=== PATIENT | female | born 1970 | race Caucasian/White ===

== ENCOUNTER 2017-09-01 14:29 | Observation (INO) | payer BC ==
[2017-09-01] MEDS ORDERED: TUSSIONEX PENNKINETIC SUSP PO PRN (15:24)
[2017-09-01 15:42] VITALS: BMI 27.6
[2017-09-01 15:54] LABS: BILIRUBIN,URINE NEGATIVE (NEGATIVE); BLOOD/HEMOGLOBIN,URINE 1+ (NEGATIVE); GLUCOSE, URINE NEGATIVE (NEGATIVE); KETONES,URINE NEGATIVE (NEGATIVE); LEUKOCYTE ESTERASE ,URINE NEGATIVE (NEGATIVE); NITRITES,URINE NEGATIVE (NEGATIVE); PH,URINE 6.5 (5.0 - 8.0); PROTEIN,URINE NEGATIVE (NEGATIVE); UROBILINOGEN,URINE NORMAL (NORMAL)
[2017-09-01 15:55] LABS: BASOPHILS % (AUTO) 0.5 % (0.2-1.0); EOSINOPHILS % (AUTO) 0.8 % (0.9-2.9); HEMATOCRIT 38.3 % (36.0-47.0); HEMOGLOBIN 13.3 g/dL (12.0-16.0); LYMPHOCYTES # (AUTO) 0.9 X10^3/uL (1.3-2.9); LYMPHOCYTES % (AUTO) 14.4 % (21.0-51.0); MEAN CORPUSCULAR HEMOGLOBIN 28.3 pg (27.0-34.0); MEAN CORPUSCULAR HGB CONC 34.7 g/dL (33.0-35.0); MEAN CORPUSCULAR VOLUME 81.6 fL (80.0-100.0); MONOCYTES # (AUTO) 0.6 x10^3/uL (0.3-0.8); MONOCYTES % (AUTO) 9.5 % (0.0-13.0); NEUTROPHILS # (AUTO) 4.6 x10^3/uL (2.2-4.8); NEUTROPHILS % (AUTO) 74.8 % (42.0-75.0); PLATELET COUNT 187 X10^3/uL (150.0-450.0); RED CELL DISTRIBUTION WIDTH 12.8 % (11.6-16.5); WHITE BLOOD COUNT 6.1 X10^3/uL (3.6-10.0)
[2017-09-01] MEDS ORDERED: SALINE 3% 15 ML NEB TX ONE (16:00)
[2017-09-01] MEDS ORDERED: NS 1/2 1000 ML IV 1,000 ML IV ONE ×2 (16:03→22:55)
[2017-09-01 16:07] LABS: ALANINE AMINOTRANSFERASE 15 Units/L (12-78); ALKALINE PHOSPHATASE 103 Units/L (46-116); ASPARTATE AMINO TRANSFERASE 13 Units/L (15-37); BLOOD UREA NITROGEN 6 mg/dL (7-18); CALCIUM 8.4 mg/dL (8.5-10.1); CARBON DIOXIDE 30.8 mmol/L (21-32); CHLORIDE 105 mmol/L (98-107); CREATININE 0.78 mg/dL (0.55-1.02); SODIUM 142 mmol/L (136-145); eGFR BLACK RACES > 60 (>60); eGFR NON BLACK RACES > 60 (>60)
--- NOTE | 2017-09-01 16:08 | RAD ---
Chest, PA and lateral Indication: Pneumonia, cough Comparison: 01/20/2015 Findings: Cardiac silhouette is unremarkable. The lungs are clear without focal infiltrate or pleural effusion. Impression: No acute chest process. Reported By:
[2017-09-01 16:16] LABS: CKMB % 1.8 % (<4); CREATINE KINASE 56 Units/L (26-192); CREATINE KINASE MB < 1.0 ng/mL (0-4.0); TROPONIN I < 0.02 ng/mL (0-1.5)
[2017-09-01 16:20] LABS: APPEARANCE,URINE CLEAR (CLEAR); BACTERIA,URINE NEGATIVE /HPF (NEGATIVE); COLOR,URINE YELLOW (YELLOW); RBC,URINE 0-2 /HPF (NONE SEEN); SQUAMOUS EPITHELIAL CELL,UR NEGATIVE /HPF (NEGATIVE)
[2017-09-01] MEDS: NS 1/2 1000 ML IV 1,000 ML IV SCH (16:20)
[2017-09-01] MEDS: LEVAQUIN PREMIX IV 750 MG 750 MG/150 ML BAG IV SCH (16:20)
[2017-09-01] MEDS: ROBITUSSIN DM PO SCH ×2 (16:20→20:34)
[2017-09-01] MEDS: NORCO 5/325 MG TAB PO PRN (16:45)
[2017-09-01] MEDS: DUONEB 0.5 MG/3 MG NEB SCH ×3 (16:52→21:52)
[2017-09-01] MEDS ORDERED: POTASSIUM CHL 60 MEQ/NS 0.45% 500 ML IV PRN (18:31)
[2017-09-01] MEDS ORDERED: POTASSIUM CHL 40 MEQ/NS 0.45% 500 ML IV PRN (18:31)
[2017-09-01] MEDS ORDERED: POTASSIUM CHLORIDE LIQ 20 MEQ UDC PO PRN (18:31)
[2017-09-01] MEDS ORDERED: K-LYTE EFFERVESCENT PO PRN (18:31)
[2017-09-01] MEDS ORDERED: K-RIDER 10 MEQ/NS 100 ML 10 MEQ/100 ML BAG IV PRN (18:31)
[2017-09-01] MEDS ORDERED: PHENERGAN INJ 25 MG IV PRN (18:44)
[2017-09-01] MEDS ORDERED: AMBIEN PO PRN (18:44)
[2017-09-01] MEDS ORDERED: ZOFRAN INJ 4 MG VIAL IVP PRN (18:44)
[2017-09-01] MEDS: ZOSYN VIAL 4.5 GM 4.5 GM in NS 100 ML IV + SPIKE MINIBAG* 100 ML IV SCH (23:13)
[2017-09-02] MEDS: DUONEB 0.5 MG/3 MG NEB SCH ×5 (01:25→16:26)
[2017-09-02] MEDS ORDERED: NS 250 ML IV 250 ML IV ONE (05:00)
[2017-09-02 05:31] LABS: BASOPHILS % (AUTO) 0.6 % (0.2-1.0); EOSINOPHILS % (AUTO) 0.5 % (0.9-2.9); HEMATOCRIT 35.9 % (36.0-47.0); HEMOGLOBIN 12.5 g/dL (12.0-16.0); LYMPHOCYTES # (AUTO) 0.7 X10^3/uL (1.3-2.9); LYMPHOCYTES % (AUTO) 14.8 % (21.0-51.0); MEAN CORPUSCULAR HEMOGLOBIN 28.3 pg (27.0-34.0); MEAN CORPUSCULAR HGB CONC 34.8 g/dL (33.0-35.0); MEAN CORPUSCULAR VOLUME 81.3 fL (80.0-100.0); MEAN PLATELET VOLUME 10.3 fL (7.4-11.0); MONOCYTES # (AUTO) 0.6 x10^3/uL (0.3-0.8); MONOCYTES % (AUTO) 11.5 % (0.0-13.0); NEUTROPHILS # (AUTO) 3.6 x10^3/uL (2.2-4.8); NEUTROPHILS % (AUTO) 72.6 % (42.0-75.0); PLATELET COUNT 170 X10^3/uL (150.0-450.0); RED BLOOD COUNT 4.42 X10^6/uL (3.5-5.4); RED CELL DISTRIBUTION WIDTH 13.1 % (11.6-16.5)
[2017-09-02] MEDS: NORCO 5/325 MG TAB PO PRN ×2 (05:43→11:55)
[2017-09-02] MEDS: ZOSYN VIAL 4.5 GM 4.5 GM in NS 100 ML IV + SPIKE MINIBAG* 100 ML IV SCH ×3 (05:43→21:42)
[2017-09-02 05:46] LABS: ALANINE AMINOTRANSFERASE 14 Units/L (12-78); ALBUMIN 3.5 g/dL (3.4-5.0); ALKALINE PHOSPHATASE 90 Units/L (46-116); ASPARTATE AMINO TRANSFERASE 11 Units/L (15-37); BLOOD UREA NITROGEN 8 mg/dL (7-18); CALCIUM 7.9 mg/dL (8.5-10.1); CARBON DIOXIDE 28.2 mmol/L (21-32); CHLORIDE 105 mmol/L (98-107); CREATININE 0.86 mg/dL (0.55-1.02); SODIUM 143 mmol/L (136-145); TOTAL PROTEIN 7.3 g/dL (6.4-8.2); eGFR BLACK RACES > 60 (>60); eGFR NON BLACK RACES > 60 (>60)
[2017-09-02] MEDS: LEVAQUIN PREMIX IV 750 MG 750 MG/150 ML BAG IV SCH (09:17)
[2017-09-02] MEDS: ROBITUSSIN DM PO SCH ×4 (09:18→21:43)
[2017-09-02] MEDS ORDERED: TORADOL 30 MG VIAL IVP PRN (12:55)
[2017-09-02] MEDS: NS 1/2 1000 ML IV 1,000 ML IV SCH ×3 (14:27→21:43)
[2017-09-02] MEDS ORDERED: NS 1/2 1000 ML IV 1,000 ML IV ONE (16:24)
--- NOTE | 2017-09-02 17:19 | PCM.PROG ---
Progress Note - Progress Note for Day of Date: 09/02/17 - Subjective Subjective: PT CONTINUES TO CO FALL AND DIZZINESS, SLIGHT IMPROVEMENT IN PERSISTENT COUGHING - Past Medical Family Social History Past Med/Fam/Surg Hx: No changes since H&P Allergies: Allergies No Known Drug Allergies Allergy (Verified 09/01/17 15:26) - Review of Systems ROS: No change since H&P - Vital Signs and I&O's Vital Signs: Temperature 98.5 F Pulse Rate [Left Radial] 93 Pulse Rate 98 Respiratory Rate 18 Blood Pressure [Left Arm] 105/61 Blood Pressure 111/64 O2 Sat by Pulse Oximetry 96 Intake and Output: Intake & Output 08/31/17 09/01/17 09/02/17 09/03/17 11:59 11:59 11:59 11:59 Intake Total 2080 840 Balance 2080 840 - Physical Exam Oriented: Normal Eyes: Normal Ear: Normal Nose: Normal Throat: Dry Respiratory: Rhonchi Cardiovascular: Tachycardia : Normal Auscultation: Bowel Sounds: Normal Palpation: Normal Tenderness: Normal Skin: Normal Musculoskeletal: Back:Lumbar Psychiatric: Anxiety Speech Pattern: Clear, Appropriate - Laboratory and Diagnostics Result Diagrams: 09/02/17 05:02 09/02/17 05:02 Labs: Laboratory WBC 5.0 X10^3/uL (3.6-10.0) 09/02/17 05:02 RBC 4.42 X10^6/uL (3.5-5.4) 09/02/17 05:02 Hgb 12.5 g/dL (12.0-16.0) 09/02/17 05:02 Hct 35.9 % (36.0-47.0) L 09/02/17 05:02 MCV 81.3 fL (80.0-100.0) 09/02/17 05:02 MCH 28.3 pg (27.0-34.0) 09/02/17 05:02 MCHC 34.8 g/dL (33.0-35.0) 09/02/17 05:02 RDW 13.1 % (11.6-16.5) 09/02/17 05:02 Plt Count 170 X10^3/uL (150.0-450.0) 09/02/17 05:02 MPV 10.3 fL (7.4-11.0) 09/02/17 05:02 Neut % (Auto) 72.6 % (42.0-75.0) 09/02/17 05:02 Lymph % (Auto) 14.8 % (21.0-51.0) L 09/02/17 05:02 [place] % (Auto) 11.5 % (0.0-13.0) 09/02/17 05:02 Eos % (Auto) 0.5 % (0.9-2.9) L 09/02/17 05:02 Baso % (Auto) 0.6 % (0.2-1.0) 09/02/17 05:02 Neut # (Auto) 3.6 x10^3/uL (2.2-4.8) 09/02/17 05:02 Lymph # (Auto) 0.7 X10^3/uL (1.3-2.9) L 09/02/17 05:02 [place] # (Auto) 0.6 x10^3/uL (0.3-0.8) 09/02/17 05:02 Eos # (Auto) 0.0 x10^3/uL (0.0-0.2) 09/02/17 05:02 Baso # (Auto) 0.0 X10^3/uL (0.0-0.1) 09/02/17 05:02 Absolute Nucleated RBC 0.1 /100WBC 09/02/17 05:02 Sodium 143 mmol/L (136-145) 09/02/17 05:02 Corrected Sodium TNP 09/02/17 05:02 Potassium 3.8 mmol/L (3.5-5.1) 09/02/17 05:02 Chloride 105 mmol/L (98-107) 09/02/17 05:02 Carbon Dioxide 28.2 mmol/L (21-32) 09/02/17 05:02 BUN 8 mg/dL (7-18) 09/02/17 05:02 Creatinine 0.86 mg/dL (0.55-1.02) 09/02/17 05:02 Est GFR (MDRD) Af Amer > 60 (>60) 09/02/17 05:02 Est GFR (MDRD) Non-Af > 60 (>60) 09/02/17 05:02 Glucose 101 mg/dL (65-99) H 09/02/17 05:02 Calcium 7.9 mg/dL (8.5-10.1) L 09/02/17 05:02 Corrected Calcium TNP 09/02/17 05:02 Total Bilirubin 0.40 mg/dL (0.2-1.0) 09/02/17 05:02 AST 11 Units/L (15-37) L 09/02/17 05:02 ALT 14 Units/L (12-78) 09/02/17 05:02 Alkaline Phosphatase 90 Units/L (46-116) 09/02/17 05:02 Creatine Kinase 56 Units/L (26-192) 09/01/17 15:35 CK-MB (CK-2) < 1.0 ng/mL (0-4.0) 09/01/17 15:35 CK/CKMB % Calc 1.8 % (<4) 09/01/17 15:35 Troponin I < 0.02 ng/mL (0-1.5) 09/01/17 15:35 Total Protein 7.3 g/dL (6.4-8.2) 09/02/17 05:02 Albumin 3.5 g/dL (3.4-5.0) 09/02/17 05:02 Globulin 3.8 g/dL (2.5-4.5) 09/02/17 05:02 Albumin/Globulin Ratio 0.9 Ratio (1.1-2.1) L 09/02/17 05:02 Specimen Type Clean catch urine 09/01/17 15:42 Urine Color Yellow (YELLOW) 09/01/17 15:42 Urine Appearance Clear (CLEAR) 09/01/17 15:42 Urine pH 6.5 (5.0 - 8.0) 09/01/17 15:42 Ur Specific [place] 1.005 (1.000-1.030) 09/01/17 15:42 Urine Protein Negative (NEGATIVE) 09/01/17 15:42 Urine Glucose (UA) Negative (NEGATIVE) 09/01/17 15:42 Urine Ketones Negative (NEGATIVE) 09/01/17 15:42 Urine Occult Blood 1+ (NEGATIVE) 09/01/17 15:42 Urine Nitrite Negative (NEGATIVE) 09/01/17 15:42 Urine Bilirubin Negative (NEGATIVE) 09/01/17 15:42 Urine Urobilinogen Normal (NORMAL) 09/01/17 15:42 Ur Leukocyte Esterase Negative (NEGATIVE) 09/01/17 15:42 Urine RBC 0-2 /HPF (NONE SEEN) 09/01/17 15:42 Urine WBC 0-2 /HPF (NONE SEEN) 09/01/17 15:42 Ur Squamous Epith Cells Negative /HPF (NEGATIVE) 09/01/17 15:42 Urine Bacteria Negative /HPF (NEGATIVE) 09/01/17 15:42 Ur Culture Indicated? No/not indicated 09/01/17 15:42 - Plan (1) Acute bronchitis Status: Acute Plan: CONTINUE. PNEUMONIA PATHWAY, ADMISSION LABS. BLOOD AND SPUTUM CULTURES. IV ATBX. RESP THERAPY, IV STEROIDS,CT HEAD. CE AND EKG ON ADMISSION, BP CONTROL (2) Dizziness Status: Acute (3) Headache Status: Acute (4) Anxiety disorder Status: Acute (5) Hypokalemia Status: Acute
--- NOTE | 2017-09-02 17:23 | DR.H&P ---
H&P - History & Physical for Day of: H&P Date: 09/01/17 - Chief Complaint Chief Complaint: FEVER, CCC, WEAKNESS, FALL AND DIZZINESS - Allergies Allergies/Adverse Reactions: Allergies Allergy/AdvReac Type Severity Reaction Status Date / Time No Known Drug Allergies Allergy Verified 09/01/17 15:26 - History of Present Illness History of Present Illness: 36 WF DIRECT ADMIT FROM DR FORMAN OFFICE WITH CO CCC AND FEVER. PT WAS TREATED ONE WEEK AGO WITH IM ROCEPHIN AND DECADRON. AND PO CEFDINIR WITHOUT IMPROVEMENT. PT STATES SHE HAS BEEN VERY WEAK IN BED WITH FALL AND DIZZINESS AND FEBRILE. PT HAS PMH OF CARDIAC ARRHYTHMIA, NOT CURRENTLY TAKING BYSTOLIC DUE TO SYMPTOMATIC BRADYCARDIA. PT ADMITTED FOR TREATEMENT OF BRONCHITIS, R/O PNEUMONIA - Past Medical History Past Medical History: Angina, Hypertension - Past Surgical History Surgical History: , Cholecystectomy, Hysterectomy, Other - Family History Family Medical History: [place], Hypertension - Social History Does patient currently use any type of tobacco product: No Have you used tobacco products in the last 12 months: No Type of Tobacco Use: None Does any household member use tobacco: No Alcohol Use: None Drug Use: None - Medications Home Medications: Nebivolol HCl [Bystolic] 1 tab PO DAILY 09/01/17 [History Confirmed 09/01/17] - Review of Systems Constitutional: Fever, Chills, Weakness, Malaise Eyes: No Symptoms Reported ENT: Throat Pain Respiratory: Cough, Shortness of Breath, Pleuritic Pain, Wheezing Cardiovascular: Palpitations, Light Headedness Gastrointestinal: Nausea, Diarrhea Genitourinary: No Symptoms Reported Musculoskeletal: Back Pain, Neck Pain Skin: No Symptoms Reported Neurological: Weakness, Other (FALL AND DIZZINESS) - Physical Exam Vital Signs: Temperature 98.5 F Pulse Rate [Left Radial] 93 Pulse Rate 98 Respiratory Rate 18 Blood Pressure [Left Arm] 105/61 Blood Pressure 111/64 O2 Sat by Pulse Oximetry 96 Oriented: Normal Eyes: Discharge Ear: Normal Nose: Normal Throat: Dry Respiratory: Rhonchi Throughout Cardiovascular: Normal. negative: Edema : Normal Auscultation: Bowel Sounds: Normal Palpation: Normal Tenderness: Normal Skin: Decreased [place]urg[place] Musculoskeletal: Back:Lumbar Psychiatric: Anxiety Affect: Anxious Speech Pattern: Clear, Appropriate - Assessment/Plan (1) Acute bronchitis Status: Acute Plan: ADMIT. PNEUMONIA PATHWAY, ADMISSION LABS. BLOOD AND SPUTUM CULTURES. IV ATBX. RESP THERAPY. CE AND EKG ON ADMISSION (2) Fever Status: Acute (3) Headache Status: Acute (4) Dizziness Status: Acute (5) Hypokalemia Status: Acute
--- NOTE | 2017-09-02 17:30 | CT ---
HISTORY: Headache with dizziness Study: CT brain without contrast Comparison: None Technique: Multiple axial images of the brain were obtained from the skull base to the vertex without administra tion of IV contrast. Dose reduction techniques including Automated Exposure Control (AEC) and adjust ment of mA and kV were utilized. Findings: The brain parenchyma is within normal limits for patient's age. No evidence of acute hemorrhage, mid line shift, mass effect or abnormal extra-axial fluid collection. The ventricular system is symmetri c and nondilated. The soft tissues and osseous structures are unremarkable. There is bilateral sphen oid, ethmoid, and maxillary sinus mucosal thickening. Mastoid air cells are clear. IMPRESSION: 1.No acute intracranial abnormality. 2. Diffuse sphenoid, ethmoid, maxillary sinus mucosal thickening; correlate for sinusitis. Reported By:
[2017-09-02 17:57] LABS: CKMB % 2.4 % (<4); CREATINE KINASE 42 Units/L (26-192); CREATINE KINASE MB < 1.0 ng/mL (0-4.0); TROPONIN I < 0.02 ng/mL (0-1.5)
[2017-09-02] MEDS: SOLU-Medrol 125 MG VIAL IVP SCH ×2 (18:03→21:42)
[2017-09-02] MEDS: XOPENEX 1.25 MG/3 ML NEBULE NEB SCH (21:47)
[2017-09-03] MEDS: NORCO 5/325 MG TAB PO PRN (00:11)
[2017-09-03 05:40] LABS: BASOPHILS % (AUTO) 0.4 % (0.2-1.0); HEMATOCRIT 36.4 % (36.0-47.0); HEMOGLOBIN 12.7 g/dL (12.0-16.0); LYMPHOCYTES # (AUTO) 0.2 X10^3/uL (1.3-2.9); LYMPHOCYTES % (AUTO) 4.7 % (21.0-51.0); MEAN CORPUSCULAR HEMOGLOBIN 28.6 pg (27.0-34.0); MEAN CORPUSCULAR HGB CONC 34.8 g/dL (33.0-35.0); MEAN CORPUSCULAR VOLUME 82.3 fL (80.0-100.0); MEAN PLATELET VOLUME 10.5 fL (7.4-11.0); MONOCYTES # (AUTO) 0.1 x10^3/uL (0.3-0.8); MONOCYTES % (AUTO) 1.6 % (0.0-13.0); NEUTROPHILS # (AUTO) 4.7 x10^3/uL (2.2-4.8); NEUTROPHILS % (AUTO) 93.3 % (42.0-75.0); PLATELET COUNT 173 X10^3/uL (150.0-450.0); RED BLOOD COUNT 4.42 X10^6/uL (3.5-5.4); RED CELL DISTRIBUTION WIDTH 13.1 % (11.6-16.5)
[2017-09-03 05:48] LABS: ALANINE AMINOTRANSFERASE 9 Units/L (12-78); ALBUMIN 3.6 g/dL (3.4-5.0); ALKALINE PHOSPHATASE 89 Units/L (46-116); ASPARTATE AMINO TRANSFERASE 11 Units/L (15-37); BLOOD UREA NITROGEN 7 mg/dL (7-18); CALCIUM 8.3 mg/dL (8.5-10.1); CARBON DIOXIDE 25.6 mmol/L (21-32); CHLORIDE 107 mmol/L (98-107); COR NA(FOR HYPERGLY) 145 mmol/L (136-145); CREATININE 0.84 mg/dL (0.55-1.02); SODIUM 143 mmol/L (136-145); TOTAL PROTEIN 7.6 g/dL (6.4-8.2); eGFR BLACK RACES > 60 (>60); eGFR NON BLACK RACES > 60 (>60)
[2017-09-03] MEDS: SOLU-Medrol 125 MG VIAL IVP SCH ×2 (05:48→13:01)
[2017-09-03] MEDS: ZOSYN VIAL 4.5 GM 4.5 GM in NS 100 ML IV + SPIKE MINIBAG* 100 ML IV SCH ×2 (05:49→13:01)
[2017-09-03 06:00] LABS: PLATELET MORPHOLOGY COMMENT NORMAL (NORMAL)
[2017-09-03] MEDS: LEVAQUIN PREMIX IV 750 MG 750 MG/150 ML BAG IV SCH (08:46)
[2017-09-03] MEDS: ROBITUSSIN DM PO SCH (08:47)
[2017-09-03] MEDS: XOPENEX 1.25 MG/3 ML NEBULE NEB SCH (08:50)
[2017-09-03 13:00] VITALS: BP 115/58
== END 2017-09-03 13:46 | disposition home or self-care (01) ==
LOC: MED/SURG 14:29
PROVIDERS: ADMIT Internal Medicine; ATTEND Internal Medicine
DX: J20.9 Acute bronchitis, unspecified (principal); R50.9 Fever, unspecified; R51 Headache; R42 Dizziness and giddiness; E87.6 Hypokalemia; R53.1 Weakness; F41.9 Anxiety disorder, unspecified
CPT/HCPCS: 36415; 70450; 71046; 80053; 81001; 82550; 82553; 84132; 84484; 85025; 87040; 93005; 93010; 94640; 94760; A4222; G0378; J1885; J1956; J2405; J2543; J2930; J7620

== ENCOUNTER → 2017-10-01 | Outpatient (CLI) | payer BC ==
[2017-09-03 13:00] VITALS: BP 115/58
--- NOTE | 2017-10-01 11:42 | US ---
HISTORY: 46-year-old female with palpable mass in the left submandibular region. Patient states inte rmittently enlarged. Study: Focal ultrasound soft tissues left neck. Comparison: None. Technique: Multiple grayscale and color Doppler images within the region of interest were obtained in the left neck. Findings: Areas of interest demonstrate normal appearing lymph nodes measuring up to 7 and 8 mm respectively. R emaining soft tissues and musculature are unremarkable. No other mass lesion or fluid collection. IMPRESSION: Normal appearing lymph nodes with no other mass lesion or fluid collection within the left neck. Reported By:
== END ==
LOC: RAD 10:06
PROVIDERS: ATTEND Psychiatry & Neurology Neurology
DX: R22.0 Localized swelling, mass and lump, head (principal)
CPT/HCPCS: 76536

== ENCOUNTER 2024-08-17 16:38 | Observation (INO) ==
--- NOTE | 2024-08-17 17:42 | DR.H&P ---
H&P History & Physical for Day of: H&P Date: 08/17/24 Chief Complaint Chief Complaint: red, painful, swollen area to lower back and buttock History of Present Illness History of Present Illness: PT IS 53 WF, DIRECT ADMIT FROM DR LEMUS OFFICE WITH CO LOWER BACK PAIN X 1 WEEK, NOW HAS "KNOT OVER TAILBONE" THAT IS PAINFUL, RED AND FEVERED. PT HAD CO FEVER AND CHILLS ON AND OFF FOR ONE WEEK. PT TOOK A ROUND OF CIPRO FOR A UTI AND REPORTS ABSCESS FORMATION STARTED AFTER THAT WHICH WAS LAST WEEK. PT HAS PMH OF HTN. PT ADMITTED FOR EVALUATION AND TREATMENT OF ACUTE ILLNESS. Past Medical History Past Medical History: Anxiety and Hypertension Past Surgical History Surgical History: , Cholecystectomy, Hysterectomy and Other Family History Family Medical History: [place] and Hypertension Medications Home Medications: Home Medications Medication Instructions Recorded Confirmed Type nebivolol 2.5 mg tablet (Bystolic) 1 tab PO DAILY 09/01/17 02/07/18 History Allergies Allergies Allergy/AdvReac Type Severity Reaction Status Date / Time No Known Drug Allergies Allergy Unknown Unverified 09/01/17 15:26 Review of Systems Constitutional: Fever and Chills Eyes: No Symptoms Reported ENT: No Symptoms Reported Respiratory: No Symptoms Reported Cardiovascular: No Symptoms Reported Gastrointestinal: Nausea Genitourinary: Frequency Musculoskeletal: Back Pain Skin: Rash Neurological: No Symptoms Reported Oriented: Normal Eyes: Normal Ear: Normal Nose: Normal Throat: Normal Respiratory: Clear Throughout Cardiovascular: Normal : Normal Auscultation: Bowel Sounds: Normal Palpation: Normal Tenderness: Normal, Suprapubic and Mild Skin: Red, Tender (PILONIDAL) and Hot Musculoskeletal: Back:Lumbar Psychiatric: Normal Mood Description: Calm Affect: Normal Speech Pattern: Clear and Appropriate Assessment/Plan (1) Pilonidal cyst with abscess: Status: Acute Plan: ADMIT, IV ATBX PAIN CONTROL, SURGICAL CONSULT
[2024-08-17 19:16] VITALS: BMI 26.2
[2024-08-17 19:22] LABS: BASOPHILS % (AUTO) 0.5 % (0.2-1.0); EOSINOPHILS # (AUTO) 0.1 x10^3/uL (0.0-0.2); EOSINOPHILS % (AUTO) 0.9 % (0.9-2.9); HEMATOCRIT 35.4 % (36.0-47.0); HEMOGLOBIN 12.3 g/dL (12.0-16.0); LYMPHOCYTES # (AUTO) 1.4 X10^3/uL (1.3-2.9); LYMPHOCYTES % (AUTO) 16.8 % (21.0-51.0); MEAN CORPUSCULAR HEMOGLOBIN 29.1 pg (27.0-34.0); MEAN CORPUSCULAR HGB CONC 34.8 g/dL (33.0-35.0); MEAN CORPUSCULAR VOLUME 83.6 fL (80.0-100.0); MEAN PLATELET VOLUME 9.9 fL (7.4-11.0); MONOCYTES # (AUTO) 0.8 x10^3/uL (0.3-0.8); MONOCYTES % (AUTO) 9.7 % (0.0-13.0); NEUTROPHILS # (AUTO) 5.9 x10^3/uL (2.2-4.8); NEUTROPHILS % (AUTO) 72.1 % (42.0-75.0); PLATELET COUNT 235 X10^3/uL (150.0-450.0); RED BLOOD COUNT 4.23 X10^6/uL (3.5-5.4); RED CELL DISTRIBUTION WIDTH 13.1 % (11.6-16.5); WHITE BLOOD COUNT 8.2 X10^3/uL (3.6-10.0)
[2024-08-17 19:33] LABS: ALANINE AMINOTRANSFERASE 12 Units/L (12-78); ALBUMIN 3.7 g/dL (3.4-5.0); ALKALINE PHOSPHATASE 110 Units/L (46-116); ASPARTATE AMINO TRANSFERASE 11 Units/L (15-37); BLOOD UREA NITROGEN 9 mg/dL (7-18); CALCIUM 8.6 mg/dL (8.5-10.1); CARBON DIOXIDE 31.1 mmol/L (21-32); CHLORIDE 104 mmol/L (98-107); CREATININE 0.82 mg/dL (0.55-1.02); GLUCOSE 67 mg/dL (65-99); POTASSIUM 3.3 mmol/L (3.5-5.1); SODIUM 142 mmol/L (136-145); TOTAL PROTEIN 7.7 g/dL (6.4-8.2); eGFR NON BLACK RACES > 60 (>60)
[2024-08-17] MEDS: NS 1,000 ML IV 1,000 ML IV SCH (20:28)
[2024-08-17] MEDS ORDERED: CONSULT PHARMACY - POTASSIUM & MAGNESIUM XX SCH (21:00)
[2024-08-17] MEDS: CLEOCIN 300 MG IV PREMIX 300 MG/50 ML BAG IV SCH (21:19)
[2024-08-17] MEDS: NORCO 5/325 MG TAB PO PRN (21:20)
[2024-08-17] MEDS: K-DUR TAB 20 MEQ PO SCH (22:51)
[2024-08-18 05:36] LABS: BASOPHILS % (AUTO) 0.5 % (0.2-1.0); EOSINOPHILS # (AUTO) 0.1 x10^3/uL (0.0-0.2); EOSINOPHILS % (AUTO) 1.2 % (0.9-2.9); HEMATOCRIT 35.1 % (36.0-47.0); HEMOGLOBIN 12.2 g/dL (12.0-16.0); LYMPHOCYTES # (AUTO) 1.4 X10^3/uL (1.3-2.9); LYMPHOCYTES % (AUTO) 18.2 % (21.0-51.0); MEAN CORPUSCULAR HEMOGLOBIN 29.1 pg (27.0-34.0); MEAN CORPUSCULAR HGB CONC 34.8 g/dL (33.0-35.0); MEAN CORPUSCULAR VOLUME 83.7 fL (80.0-100.0); MEAN PLATELET VOLUME 9.7 fL (7.4-11.0); MONOCYTES # (AUTO) 0.7 x10^3/uL (0.3-0.8); MONOCYTES % (AUTO) 9.1 % (0.0-13.0); NEUTROPHILS # (AUTO) 5.3 x10^3/uL (2.2-4.8); PLATELET COUNT 223 X10^3/uL (150.0-450.0); RED CELL DISTRIBUTION WIDTH 12.7 % (11.6-16.5); WHITE BLOOD COUNT 7.4 X10^3/uL (3.6-10.0)
[2024-08-18 05:46] LABS: ALANINE AMINOTRANSFERASE 13 Units/L (12-78); ALBUMIN 3.4 g/dL (3.4-5.0); ALKALINE PHOSPHATASE 103 Units/L (46-116); ASPARTATE AMINO TRANSFERASE 12 Units/L (15-37); BLOOD UREA NITROGEN 10 mg/dL (7-18); CALCIUM 8.3 mg/dL (8.5-10.1); CARBON DIOXIDE 31.3 mmol/L (21-32); CHLORIDE 106 mmol/L (98-107); CREATININE 0.83 mg/dL (0.55-1.02); GLUCOSE 91 mg/dL (65-99); POTASSIUM 3.8 mmol/L (3.5-5.1); SODIUM 144 mmol/L (136-145); eGFR NON BLACK RACES > 60 (>60)
[2024-08-18] MEDS: PROTONIX TAB 40 MG PO SCH (10:53)
[2024-08-18] MEDS: PROzac PO SCH (10:53)
[2024-08-18] MEDS: FENTANYL VIAL INJ 100 mcg ONE (12:09)
[2024-08-18] MEDS: ZOFRAN INJ 4 MG VIAL ONE (12:09)
[2024-08-18] MEDS: PEPCID 20 MG VIAL ONE (12:09)
[2024-08-18] MEDS: DIPRIVAN VIAL 20 ML ONE (12:09)
[2024-08-18] MEDS: ZEMURON 100 MG VIAL ONE (12:09)
[2024-08-18] MEDS: BRIDION ONE (12:09)
[2024-08-18] MEDS: VERSED ONE (12:09)
[2024-08-18] MEDS: POLYMYXIN B SULFATE ONE (12:29)
[2024-08-18] MEDS: PEPCID 20 MG VIAL IVP PRN (12:40)
[2024-08-18] MEDS: ZOFRAN INJ 4 MG VIAL IVP PRN (12:40)
[2024-08-18] MEDS: XYLOCAINE 1 % (PLAIN) ONE (12:41)
[2024-08-18] MEDS: LR 1,000 ML IV 1,000 ML IV ONE (12:42)
[2024-08-18] MEDS: LR IV PRN (12:48)
[2024-08-18] MEDS ORDERED: KETAMINE HCL ONE (12:48)
[2024-08-18] MEDS: VERSED IVP PRN (12:50)
[2024-08-18] MEDS: KETAMINE HCL IV PRN (12:53)
[2024-08-18] MEDS ORDERED: XYLOCAINE 2 % (PLAIN) PRN (12:56)
[2024-08-18] MEDS: DIPRIVAN VIAL 90 ML IVP PRN (12:57)
[2024-08-18] MEDS ORDERED: DILAUDID INJ IVP PRN (13:10)
[2024-08-18] MEDS: TORADOL 15 MG VIAL IVP PRN (14:28)
--- NOTE | 2024-08-18 17:38 | CT ---
EXAM:LUMBAR SPINE W/O CONHISTORY:Pilonidal CYST, low back painCOMPARISON:CT abdomen and pelvis July 21, 2023TECHNIQUE:CT of the lumbar spine without contrastFINDINGS:Vertebral body heights are maintained. Facets align normally. There is scoliotic curvature of the lumbar spine versus positioning. The SI joints align normally. The visible lung bases are clear. Clips are noted from prior cholecystectomy. Limited visualization of the intrapelvic soft tissues demonstrates no acute process. No pelvic free fluid.In the subcutaneous fat overlying the sacrum in the midline there is collection present extending to the skin surface measuring approximately 2.4 X 1.8 X 1.8 cm. There is inflammatory stranding in the adjacent fat surrounding the collection. There is high density material within the collection with locules of gas. There is no evidence of intraperitoneal extension.IMPRESSION:Small collection in the subcutaneous fat of the sacrum overlying the midline containing gas and high density material. Inclusion cyst or pilonidal cyst would be top considerations. The high density material within the collection is of uncertain etiology and similar in appearance to contrast. No evidence of extension of this process into the peritoneum. There is mild surrounding stranding and induration in the adjacent fat suggesting concurrent mild cellulitis. The air within the collection could be due to communication with the skin surface, instrumentation or gas-forming organism.All CT scans at this facility use dose modulation, iterative reconstruction, and/or weight based dosing when appropriate to reduce radiation dose to as low as reasonably achievable.THIS IS AN ELECTRONICALLY VERIFIED FINAL REPORT08/18/2024 5:35 PM - Electronically signed by Jeffrey Leung MD
[2024-08-19 06:17] LABS: ALANINE AMINOTRANSFERASE 11 Units/L (12-78); ALBUMIN 2.9 g/dL (3.4-5.0); ALKALINE PHOSPHATASE 93 Units/L (46-116); ASPARTATE AMINO TRANSFERASE 11 Units/L (15-37); BLOOD UREA NITROGEN 9 mg/dL (7-18); CALCIUM 8.2 mg/dL (8.5-10.1); CARBON DIOXIDE 31.4 mmol/L (21-32); CHLORIDE 107 mmol/L (98-107); COR CA(FOR HYPOALB) 9.1 mg/dL (8.5-10.1); CREATININE 0.88 mg/dL (0.55-1.02); GLUCOSE 102 mg/dL (65-99); POTASSIUM 4.2 mmol/L (3.5-5.1); SODIUM 143 mmol/L (136-145); TOTAL PROTEIN 6.1 g/dL (6.4-8.2); eGFR NON BLACK RACES > 60 (>60)
[2024-08-19 06:23] LABS: BASOPHILS % (AUTO) 0.5 % (0.2-1.0); EOSINOPHILS # (AUTO) 0.1 x10^3/uL (0.0-0.2); EOSINOPHILS % (AUTO) 1.8 % (0.9-2.9); HEMATOCRIT 31.3 % (36.0-47.0); LYMPHOCYTES # (AUTO) 1.2 X10^3/uL (1.3-2.9); LYMPHOCYTES % (AUTO) 22.6 % (21.0-51.0); MEAN CORPUSCULAR HEMOGLOBIN 29.2 pg (27.0-34.0); MEAN CORPUSCULAR HGB CONC 35.2 g/dL (33.0-35.0); MEAN CORPUSCULAR VOLUME 82.8 fL (80.0-100.0); MEAN PLATELET VOLUME 9.9 fL (7.4-11.0); MONOCYTES # (AUTO) 0.5 x10^3/uL (0.3-0.8); MONOCYTES % (AUTO) 9.5 % (0.0-13.0); NEUTROPHILS # (AUTO) 3.4 x10^3/uL (2.2-4.8); NEUTROPHILS % (AUTO) 65.6 % (42.0-75.0); PLATELET COUNT 198 X10^3/uL (150.0-450.0); RED BLOOD COUNT 3.78 X10^6/uL (3.5-5.4); RED CELL DISTRIBUTION WIDTH 12.7 % (11.6-16.5); WHITE BLOOD COUNT 5.2 X10^3/uL (3.6-10.0)
[2024-08-19] MEDS: COZAAR PO SCH (09:07)
[2024-08-19] MEDS: NORVASC TAB 10 MG PO SCH (09:07)
[2024-08-19] MEDS: COLACE CAP 100 MG PO SCH (20:18)
[2024-08-19] MEDS: MIRALAX POWDER (1 DOSE 17 G) PO SCH (20:18)
[2024-08-19] MEDS: PROGESTERONE MICRONIZED 100 MG PO SCH (20:20)
[2024-08-20 06:15] LABS: EOSINOPHILS # (AUTO) 0.1 x10^3/uL (0.0-0.2); EOSINOPHILS % (AUTO) 2.7 % (0.9-2.9); HEMATOCRIT 32.5 % (36.0-47.0); HEMOGLOBIN 11.6 g/dL (12.0-16.0); LYMPHOCYTES # (AUTO) 1.1 X10^3/uL (1.3-2.9); LYMPHOCYTES % (AUTO) 22.8 % (21.0-51.0); MEAN CORPUSCULAR HEMOGLOBIN 29.4 pg (27.0-34.0); MEAN CORPUSCULAR HGB CONC 35.5 g/dL (33.0-35.0); MEAN CORPUSCULAR VOLUME 82.8 fL (80.0-100.0); MEAN PLATELET VOLUME 9.5 fL (7.4-11.0); MONOCYTES # (AUTO) 0.4 x10^3/uL (0.3-0.8); MONOCYTES % (AUTO) 8.4 % (0.0-13.0); NEUTROPHILS # (AUTO) 3.1 x10^3/uL (2.2-4.8); NEUTROPHILS % (AUTO) 65.1 % (42.0-75.0); PLATELET COUNT 217 X10^3/uL (150.0-450.0); RED BLOOD COUNT 3.93 X10^6/uL (3.5-5.4); RED CELL DISTRIBUTION WIDTH 12.6 % (11.6-16.5); WHITE BLOOD COUNT 4.8 X10^3/uL (3.6-10.0)
[2024-08-20 06:30] LABS: ALANINE AMINOTRANSFERASE 14 Units/L (12-78); ALKALINE PHOSPHATASE 99 Units/L (46-116); ASPARTATE AMINO TRANSFERASE 18 Units/L (15-37); BLOOD UREA NITROGEN 8 mg/dL (7-18); CALCIUM 8.1 mg/dL (8.5-10.1); CARBON DIOXIDE 30.1 mmol/L (21-32); CHLORIDE 105 mmol/L (98-107); COR CA(FOR HYPOALB) 8.9 mg/dL (8.5-10.1); CREATININE 0.72 mg/dL (0.55-1.02); GLUCOSE 96 mg/dL (65-99); POTASSIUM 3.3 mmol/L (3.5-5.1); SODIUM 142 mmol/L (136-145); TOTAL PROTEIN 6.6 g/dL (6.4-8.2); eGFR NON BLACK RACES > 60 (>60)
[2024-08-20] MEDS ORDERED: CONSULT PHARMACY - POTASSIUM & MAGNESIUM XX SCH (07:00)
[2024-08-20 09:38] VITALS: BP 119/74; PULSE 63; RESP 16; TEMP 97.6; O2SAT 99
[2024-08-20] MEDS: K-DUR TAB 20 MEQ PO SCH (10:12)
--- NOTE | 2024-08-20 11:41 | DR.PROGNOT ---
HOSPITAL PROGRESS NOTE Progress Note for Day of: Progress Note Date: 08/20/24 Chief Complaint Chief Complaint: Patient is status post incision and drainage of pilonidal abscess, final culture report showed MRSA. Patient is feeling better, the dressing was changed and repacked with iodoform packing. The associated cellulitis had subsided and patient could be discharged on c lindamycin 300 mg every 8 hours and will follow in 10 days, may need future excision of the pilonidal cyst, Past Medical Family Social History Past Med/Fam/Surg Hx: No changes since H&P Allergies: Allergies No Known Drug Allergies Allergy (Unknown, Unverified 09/01/17 15:26) Onset Date: 11/25/2011 Review Of Systems ROS: No change since H&P Vital Signs Vital Signs: Vital Signs Temperature 97.6 F Temperature 97.9 F Pulse Rate [Left Brachial] 63 Pulse Rate [Left Brachial] 62 Respiratory Rate 16 Respiratory Rate 18 Respiratory Rate 17 Respiratory Rate 16 Blood Pressure [Left Arm] 119/74 Blood Pressure [Left Arm] 123/64 O2 Sat by Pulse Oximetry 99 O2 Sat by Pulse Oximetry 98 Physical Exam Oriented: Normal Eyes: Normal Ear: Normal Nose: Normal Throat: Normal Cardiovascular: Normal : Normal GI:Auscultation: Normal GI:Palpation: Normal GI: Tenderness: Normal, Suprapubic and Mild Skin: Red, Tender (PILONIDAL), Hot and Wound (The abscess cavity was repacked) Musculoskeletal: Back:Lumbar Psychiatric: Normal Mood Description: Calm Affect: Normal Speech Pattern: Clear and Appropriate Laboratory and Diagnostics 08/20/24 05:59 08/20/24 05:59 Labs: 08/18/24 13:00 Buttock Wound Culture - Preliminary Methicillin Resis Staph Aureus 08/17/24 19:07 Blood Blood Culture - Preliminary 08/17/24 19:02 Blood Blood Culture - Preliminary Laboratory WBC 4.8 X10^3/uL (3.6-10.0) 08/20/24 05:59 RBC 3.93 X10^6/uL (3.5-5.4) 08/20/24 05:59 Hgb 11.6 g/dL (12.0-16.0) L 08/20/24 05:59 Hct 32.5 % (36.0-47.0) L 08/20/24 05:59 MCV 82.8 fL (80.0-100.0) 08/20/24 05:59 MCH 29.4 pg (27.0-34.0) 08/20/24 05:59 MCHC 35.5 g/dL (33.0-35.0) H 08/20/24 05:59 RDW 12.6 % (11.6-16.5) 08/20/24 05:59 Plt Count 217 X10^3/uL (150.0-450.0) 08/20/24 05:59 MPV 9.5 fL (7.4-11.0) 08/20/24 05:59 Neut % (Auto) 65.1 % (42.0-75.0) 08/20/24 05:59 Lymph % (Auto) 22.8 % (21.0-51.0) 08/20/24 05:59 [place] % (Auto) 8.4 % (0.0-13.0) 08/20/24 05:59 Eos % (Auto) 2.7 % (0.9-2.9) 08/20/24 05:59 Baso % (Auto) 1.0 % (0.2-1.0) 08/20/24 05:59 Neut # (Auto) 3.1 x10^3/uL (2.2-4.8) 08/20/24 05:59 Lymph # (Auto) 1.1 X10^3/uL (1.3-2.9) L 08/20/24 05:59 [place] # (Auto) 0.4 x10^3/uL (0.3-0.8) 08/20/24 05:59 Eos # (Auto) 0.1 x10^3/uL (0.0-0.2) 08/20/24 05:59 Baso # (Auto) 0.0 X10^3/uL (0.0-0.1) 08/20/24 05:59 Absolute Nucleated RBC 0.0 /100WBC 08/20/24 05:59 Sodium 142 mmol/L (136-145) 08/20/24 05:59 Corrected Sodium TNP 08/20/24 05:59 Potassium 3.3 mmol/L (3.5-5.1) L 08/20/24 05:59 Chloride 105 mmol/L (98-107) 08/20/24 05:59 Carbon Dioxide 30.1 mmol/L (21-32) 08/20/24 05:59 BUN 8 mg/dL (7-18) 08/20/24 05:59 Creatinine 0.72 mg/dL (0.55-1.02) 08/20/24 05:59 Est GFR (MDRD) Af Amer > 60 (>60) 08/20/24 05:59 Est GFR (MDRD) Non-Af > 60 (>60) 08/20/24 05:59 Glucose 96 mg/dL (65-99) 08/20/24 05:59 Calcium 8.1 mg/dL (8.5-10.1) L 08/20/24 05:59 Corrected Calcium 8.9 mg/dL (8.5-10.1) 08/20/24 05:59 Magnesium 2.0 mg/dL (2.0-2.9) 08/18/24 05:24 Total Bilirubin 0.30 mg/dL (0.2-1.0) 08/20/24 05:59 AST 18 Units/L (15-37) 08/20/24 05:59 ALT 14 Units/L (12-78) 08/20/24 05:59 Alkaline Phosphatase 99 Units/L (46-116) 08/20/24 05:59 Total Protein 6.6 g/dL (6.4-8.2) 08/20/24 05:59 Albumin 3.0 g/dL (3.4-5.0) L 08/20/24 05:59 Globulin 3.6 g/dL (2.5-4.5) 08/20/24 05:59 Albumin/Globulin Ratio 0.8 Ratio (1.1-2.1) L 08/20/24 05:59 Assessment and Plan 1: Pilonidal abscess status post incision and drainage positive for MRSA. Patient will be discharged on clindamycin 300 every 8 hours, local care with dressing changes and repacking. Follow-up in 10 days.
== END 2024-08-20 11:20 | disposition home or self-care (01) ==
LOC: MED/SURG
PROVIDERS: ADMIT Internal Medicine; ATTEND Internal Medicine
DX: F41.8 Other specified anxiety disorders; Z16.12 Extended spectrum beta lactamase (ESBL) resistance; B95.62 Methicillin resistant Staphylococcus aureus infection as the cause of diseases classified elsewhere; M54.59 Other low back pain; Z16.23 Resistance to quinolones and fluoroquinolones; E87.6 Hypokalemia; I10 Essential (primary) hypertension; L05.01 Pilonidal cyst with abscess; K59.09 Other constipation; Z16.29 Resistance to other single specified antibiotic; L03.317 Cellulitis of buttock